=== PATIENT | male | born 1950 | race Two or more races ===

== ENCOUNTER 2020-03-21 12:28 | Outpatient (CLI) | payer OTHER | END 2020-03-21 14:20 | disposition home or self-care (01) | LOC: OFIC 805 12:28 | PROVIDERS: ATTEND Otolaryngology Otology & Neurotology | DX: R04.0 Epistaxis (principal); J34.89 Other specified disorders of nose and nasal sinuses ==

== ENCOUNTER → 2020-03-28 | Outpatient (CLI) | payer OTHER | END | disposition home or self-care (01) | LOC: OFIC 805 08:30 | PROVIDERS: ATTEND Otolaryngology | DX: R04.0 Epistaxis (principal) ==